=== PATIENT | female | born 2000 | race Caucasian/White ===

== ENCOUNTER → 2019-12-09 | Outpatient (CLI) | payer OTHER | LOC: OD 15:54 | PROVIDERS: ATTEND Nurse Practitioner Family | DX: N92.6 Irregular menstruation, unspecified (principal) | CPT/HCPCS: 36415; 84702 ==

== ENCOUNTER 2020-03-09 01:52 | Emergency (ER) | payer OTHER ==
[2020-03-09 02:04] VITALS: BP 140/84
--- NOTE | 2020-03-09 03:22 | RADIOLOGY REPORT (SQ) ---
EXAM DESCRIPTION: XR WRIST 3 OR MORE VIEWS COMPLETED DATE/TME: 03/09/2020 03:05 CLINICAL HISTORY: 19 years Female, bone pain COMPARISON: None. Findings: Acute comminuted intra-articular fracture of the distal right radius. Acute mildly displaced fracture at the base of the right ulnar styloid. Swelling. Bones, joints, and soft tissues of the RIGHT XR WRIST 3 VIEWS appear otherwise unremarkable. IMPRESSION: Acute comminuted intra-articular fracture of the distal right radius. Acute mildly displaced fracture at the base of the right ulnar styloid. Swelling.
[2020-03-09] MEDS ORDERED: HYDROCODONE/ACETAMINOPHEN 5-325 MG TABLET PO ONE (03:38)
--- NOTE | 2020-03-09 03:43 | ER Document Report ---
ED General - General Chief Complaint: Wrist Injury Stated Complaint: ARM PAIN Time Seen by Provider: 03/09/20 03:33 Primary Care Provider: ADDIE MUNSON FNP-C [Primary Care Provider] - Follow up as needed RAISA GEORGE JR, DO [ACTIVE PROVISIONAL STAFF] - Follow up as needed Mode of Arrival: Ambulatory Information source: Patient Notes: Patient presents to the ER for evaluation of right wrist pain following an awkward fall while wrestling her sister. She denies neck or back pain. She denies headache or positive loss of consciousness. She is ambulatory without assistance. She denies elbow pain. She denies forearm pain. Nursing notes reviewed and past medical, social, and family histories reviewed and validated. TRAVEL OUTSIDE OF THE [place] IN LAST 30 DAYS: No - Related Data Allergies/Adverse Reactions: albuterol Allergy (Verified 03/09/20 02:53) Past Medical History - General Information source: Patient - Social History Smoking Status: Current Some Day Smoker Cigarette use (# per day): Yes - Occasionally Chew tobacco use (# tins/day): No Smoking Education Provided: Yes Frequency of alcohol use: Occasional Drug Abuse: None Lives with: Alone Family History: Reviewed & Not Pertinent Patient has suicidal ideation: No Patient has homicidal ideation: No - Past Medical History Cardiac Medical History: Reports: None Pulmonary Medical History: Reports: None EENT Medical History: Reports: None Neurological Medical History: Reports: None Endocrine Medical History: Reports: None Renal/ Medical History: Reports: None Malignancy Medical History: Reports: None GI Medical History: Reports: None Musculoskeletal Medical History: Reports None Skin Medical History: Reports None Psychiatric Medical History: Reports: None Traumatic Medical History: Reports: None Infectious Medical History: Reports: None Past Surgical History: Reports: None Review of Systems - Review of Systems Notes: Constitutional: Negative for fever. HENT: Negative for sore throat. Eyes: Negative for visual changes. Cardiovascular: Negative for chest pain. Respiratory: Negative for shortness of breath. Gastrointestinal: Negative for abdominal pain, vomiting or diarrhea. Genitourinary: Negative for dysuria. Musculoskeletal: Positive for wrist pain. Skin: Negative for rash. Neurological: Negative for headaches, weakness or numbness. 10 point ROS negative except as marked above and in HPI. Physical Exam - Vital signs Vitals: Temp Pulse Resp BP Pulse Ox 98.4 F 53 L 16 140/84 H 97 03/09/20 01:58 03/09/20 01:58 03/09/20 01:58 03/09/20 01:58 03/09/20 01:58 - Notes Notes: CONSTITUTIONAL: Well appearing in no acute distress SKIN: Warm, dry, and intact without rash EYES: Extraocular movements are grossly intact, clear conjunctiva HENT: Normocephalic, atraumatic, moist mucus membranes NECK: No obvious swelling, normal range of motion PULMONARY: Normal chest rise and fall, no respiratory distress or stridor CARDIOVASCULAR: Regular rate, distal extremities are warm and well perfused NEUROLOGIC: Normal speech, moves all extremities MUSCULOSKELETAL: There is swelling to the right wrist. There is pain with range of motion. Good distal CMS. PSYCHIATRIC: Normal mood and affect Course - Re-evaluation Re-evalutation: 03/09/20 03:45 Rechecked patient who has responded well to treatment in the ER. Discussed with patient: results, diagnosis, treatment plan, and need for follow-up. Return to the emergency department warnings were given. All questions and concerns were addressed. The plan is agreed with and understood. Patient is stable and ready for discharge. - Vital Signs Vital signs: Temp Pulse Resp BP Pulse Ox 98.4 F 53 L 16 140/84 H 97 03/09/20 01:58 03/09/20 01:58 03/09/20 01:58 03/09/20 01:58 03/09/20 01:58 - Laboratory Results Critical Laboratory Results Reviewed: No Critical Results - Radiology Results Radiology Results Interpreted: 03/09/20 03:46 Wrist x-ray shows distal radius and ulna fractures of the right wrist. Critical Radiology Results Reviewed: No Critical Results Procedures - Immobilization Right Wrist Time completed: 03:45 Pre-Proc Neuro Vasc Exam: Normal Immobilizer type: Sugar tong Performed by: RN Post-Proc Neuro Vasc Exam: Normal Alignment checked and good: Yes Discharge - Discharge Clinical Impression: Closed fracture distal radius and ulna Qualifiers: Encounter type: initial encounter Laterality: right Qualified Code(s): S52.501A - Unspecified fracture of the lower end of right radius, initial encounter for closed fracture Condition: Stable Disposition: HOME, SELF-CARE Instructions: Fractured Radius and Ulna ([facility]) Prescriptions: Hydrocodone/Acetaminophen [Ward 5-325 mg Tablet] 1 tab PO Q6HP PRN 3 Days #12 tablet PRN Reason: For Pain Referrals: ADDIE MUNSON, [employer]CH[employer]IC-C [Primary Care Provider] - Follow up as needed RAISA GEORGE JR, DO [ACTIVE PROVISIONAL STAFF] - Follow up as needed
== END 2020-03-09 04:25 | disposition home or self-care (01) ==
LOC: ER 01:52
DX: S52.571A Other intraarticular fracture of lower end of right radius, initial encounter for closed fracture (principal); S52.611A Displaced fracture of right ulna styloid process, initial encounter for closed fracture; W19.XXXA Unspecified fall, initial encounter; Y93.72 Activity, wrestling; F17.210 Nicotine dependence, cigarettes, uncomplicated; Z88.8 Allergy status to other drugs, medicaments and biological substances
CPT/HCPCS: 99283